=== PATIENT | male | born 1930 | race African-American/Black ===

== ENCOUNTER 2016-08-06 16:16 | Emergency (ER) | payer MEDICARE ==
[~2016-08-06] VITALS: Ht 167.6 cm; Wt 80.0 kg
[2016-08-06 16:17] VITALS: BP 149/66; PULSE 48; RESP 20; TEMP 98.6; O2SAT 100
[2016-08-06] MEDS ORDERED: ERYTOIN10 EACH EYE (16:35)
--- NOTE | 2016-08-06 16:35 | PD ---
HPI . Bilateral eye drainage for 2 days Chief Complaint: ENT Complaint Time Seen by Provider: 16:33 Travel History International Travel<30 days: No Contact w/Intl Traveler<30days: No Traveled to known affect area: No History of Present Illness HPI 85-year-old male with history of stroke and aphasia here with complaints of bilateral eye drainage for the past 2 days. Patient tells me that he does not have any eye pain, but that he's been experiencing drainage and it's causing him to have slightly blurry vision. Patient's son tells me that he was told by one of our nurses in [place] that he needs to come to the emergency room to be seen by "finance intern". He tells me that he was told that the hospital in [place] does not have them on staff and he would need to come to [place]. Patient repeatedly denies any eye pain or foreign body sensation. He has no other complaints. He has a low heart rate and his son tells us that his heart rate is always 43-50. [facility] Past Medical History Cardiovascular Problems: Yes Cerebrovascular Accident: Yes (2014) Social History Alcohol Use: No Tobacco Use: No Substance Use: No Allergies-Medications (Allergen,Severity, Reaction): Coded Allergies: No Known Allergies (Unverified , 08/06/16) Reported Meds & Prescriptions Reported Meds & Active Scripts Active Erythromycin Opth Oint 5 Mg/Gm Oint 1 Applic EACH EYE BID 5 Days Review of Systems General / Constitutional: No: Fever Eyes: Positive: Drainage, No: Visual changes HENT: No: Headaches Cardiovascular: No: Chest Pain or Discomfort Respiratory: No: Shortness of Breath Gastrointestinal: No: Abdominal Pain Genitourinary: No: Dysuria Musculoskeletal: No: Pain Skin: No Rash Neurologic: No: Weakness Psychiatric: No: Depression Endocrine: No: Polydipsia Hematologic/Lymphatic: No: Easy Bruising Physical Exam Narrative GENERAL: no acute distress, Well-nourished, well-developed patient. SKIN: Warm and dry. No visible rashes or bruising. HEAD: Normocephalic and atraumatic. EYES: No scleral icterus. EOM intact, PERRLA. Bilateral injection of conjunctiva. Right eye with purulent matter. No erythema ENT: No nasal drainage noted. Mucous membranes pink. Airway patent. NECK: Supple, trachea midline. No JVD. CARDIOVASCULAR: bradycardic without murmurs, gallops, or rubs. RESPIRATORY: Breath sounds equal bilaterally. No accessory muscle use. No rhonchi or rales. GASTROINTESTINAL: Visual inspection normal EXTREMITIES: No cyanosis or edema. BACK: No obvious deformity. NEURO: grossly intact, follows commands PSYCH: hard to assess, patient has some expressive aphasia Data Data Last Documented VS Vital Signs Date Time Temp Pulse Resp B/P Pulse Ox O2 Delivery O2 Flow Rate FiO2 08/06/16 16:17 98.6 48 20 149/66 100 Room Air MDM Medical Decision Making Medical Screen Exam Complete: Yes Emergency Medical Condition: Yes Medical Record Reviewed: Yes Differential Diagnosis Conjunctivitis, less likely foreign body, less likely retinal detachment, less likely acute angle glaucoma Narrative Course This is 85-year-old male here with complaints of bilateral eye drainage. He does have clear evidence of conjunctivitis. I will go ahead and provide him with a course for them I sent ophthalmic ointment. I've instructed his family that he will need to follow-up with an [employer] dining car in 2-3 days. He does not have any evidence of acute pain or vision loss, therefore my suspicion for retinal detachment or acute angle glaucoma is low. Patient verbalized understanding of instructions, questions were answered, and thanked me for their care. I advised them if their condition worsens, please return to the nearest emergency room for further care. Diagnosis Primary Impression: Conjunctivitis Qualified Code: H10.33 - Acute bacterial conjunctivitis of both eyes Patient Instructions: General Instructions Additional Instructions: Please return to emergency department if your symptoms return or worsen. Follow up with your primary care provider. Take medications as prescribed. Try to follow-up with an steward[employer] dining car in 2-3 days. If you develop sudden onset of eye pain or vision loss, go to the nearest emergency department. Med/Other Pt SpecificInfo: Prescription(s) given Scripts Erythromycin Opth Oint 5 Mg/Gm Oint1 Applic EACH EYE BID 5 Days Ref 0 Prov:Bre Bhatt MD 08/06/16 Disposition: 01 DISCHARGE HOME Condition: Stable [place] He Aug 06, 2016 16:35
== END 2016-08-06 17:09 | disposition home or self-care (01) ==
LOC: NEPD 16:16
DX: H10.89 Other conjunctivitis (principal)
CPT/HCPCS: 99283